=== PATIENT | female | born 1980 | race Caucasian/White ===

== ENCOUNTER 2022-02-28 22:19 | Emergency (ER) | payer OTHER ==
[~2022-02-28] VITALS: Ht 188 cm; Wt 77.1 kg
[2022-02-28 23:05] VITALS: BP 114/80
[2022-02-28] MEDS ORDERED: LIDOCAINE VISCOUS 2% UD 15 ML UDC ONE (23:25)
[2022-02-28] MEDS ORDERED: MAG HYDROX/AL HYDROX/SIMETH 30 ML UDC ONE (23:25)
[2022-02-28] MEDS ORDERED: MAG HYDROX/AL HYDROX/SIMETH 30 ML UDC PO ONE (23:30)
[2022-02-28] MEDS ORDERED: LIDOCAINE VISCOUS 2% UD 15 ML UDC MM ONE (23:30)
[2022-03-01] MEDS ORDERED: MORPHINE SULFATE INJ 2 MG/ML DISP.SYRIN IM ONE (00:30)
[2022-03-01] MEDS ORDERED: MORPHINE SULFATE INJ 2 MG/ML DISP.SYRIN ONE (00:33)
== END 2022-03-01 01:04 | disposition home or self-care (01) ==
LOC: ER 22:21
DX: K21.9 Gastro-esophageal reflux disease without esophagitis (principal); Z86.59 Personal history of other mental and behavioral disorders; R10.13 Epigastric pain; Z60.2 Problems related to living alone
CPT/HCPCS: 99283; 96372; J2270